=== PATIENT | male | born 1990 | race Two or more races ===

== ENCOUNTER 2017-01-10 15:58 | Emergency (ER) | payer OTHER ==
[~2017-01-10] VITALS: Ht 180.3 cm; Wt 90.7 kg
[2017-01-10 16:03] VITALS: BP 131/97
[2017-01-10] MEDS ORDERED: IBUPROFEN 600 MG TABLET PO ONE ×2 (16:24→16:30)
[2017-01-10] MEDS ORDERED: PENICILLIN G BENZATHINE 2.4 MMU/4 ML ML IM ONE ×2 (17:00→17:02)
== END 2017-01-10 17:11 | disposition home or self-care (01) ==
LOC: ER 16:04
DX: J02.0 Streptococcal pharyngitis (principal); K21.9 Gastro-esophageal reflux disease without esophagitis
CPT/HCPCS: 87880; 96372; 99284; A4606; J0558; Z7610; 86403-TC